=== PATIENT | male | born 1970 | race Caucasian/White ===

== ENCOUNTER 2018-06-10 08:10 | Emergency (ER) | payer BC ==
--- NOTE | 2018-06-10 08:22 | UC ---
Throat Pain/Nasal Margarito HPI - HPI Summary HPI Summary: 47-year-old male here with complaint of 2 weeks of upper respiratory tract infection symptoms. He's got sinus pressure green rhinorrhea mild sore throat. Started get pressure building up in his right ear. No recent fevers. No cough or chest congestion. He has been using [id number] medications which helped with the symptoms but overall condition is worsening. - History of Current Complaint Stated Complaint: COLD SYMPTOMS Time Seen by Provider: 06/10/18 08:14 - Allergies/Home Medications Allergies/Adverse Reactions: Allergies Allergy/AdvReac Type Severity Reaction Status Date / Time No Known Allergies Allergy Verified 03/18/16 11:26 PMH/Surg Hx/FS Hx/Imm Hx Previously Healthy: Yes Other History Of: Negative For: Anticoagulant Therapy - Surgical History Surgical History: None - Family History Known Family History: Negative: Cardiac Disease, Diabetes - Social History Alcohol Use: None Substance Use Type: None Smoking Status (MU): Unknown if Ever Smoked Review of Systems All Other Systems Reviewed And Are Negative: Yes Constitutional: Positive: Negative Skin: Positive: Negative Eyes: Positive: Negative ENT: Positive: Sore Throat, Ear Ache, Nasal Discharge, Sinus Congestion, Sinus Pain/Tenderness Respiratory: Positive: Negative Cardiovascular: Positive: Negative Gastrointestinal: Positive: Negative Motor: Positive: Negative Neurovascular: Positive: Negative Musculoskeletal: Positive: Negative Neurological: Positive: Negative Psychological: Positive: Negative Is Patient Immunocompromised?: No Physical Exam Triage Information Reviewed: Yes Appearance: Well-Appearing, No Pain Distress, Well-Nourished Vital Signs Reviewed: Yes Eye Exam: Normal Eyes: Positive: Conjunctiva Clear ENT: Positive: Pharyngeal erythema, Nasal congestion, TM dull - RIGHT. Negative : TM red Neck exam: Normal Neck: Positive: Supple Respiratory: Positive: Lungs clear, Normal breath sounds, No respiratory distress Cardiovascular: Positive: RRR Musculoskeletal Exam: Normal Musculoskeletal: Positive: Strength Intact, ROM Intact Neurological Exam: Normal Neurological: Positive: Alert, Muscle Tone Normal Psychological Exam: Normal Psychological: Positive: Age Appropriate Behavior Skin Exam: Normal Throat Pain/Nasal Course/Dx - Differential Dx/Diagnosis Provider Diagnoses: SINUSITIS Discharge - Sign-Out/Discharge Documenting (check all that apply): Patient Departure All imaging exams completed and their final reports reviewed: No Studies - Discharge Plan Condition: Stable Disposition: HOME Prescriptions: Amoxicillin/Clavulanate TAB* [Augmentin TAB 875*] 875 mg PO BID #20 tab Patient Education Materials: Sinusitis (ED) Referrals: Candace Dye MD [Primary Care Provider] - Additional Instructions: FOLLOW UP WITH YOUR DOCTOR IF NOT COMPLETELY IMPROVED. GET RECHECKED FOR ANY WORSENING OF YOUR CONDITION OR QUESTIONS OR CONCERNS. - Billing Disposition and Condition Condition: STABLE Disposition: Home
[2018-06-10 08:26] VITALS: BP 135/88
== END 2018-06-10 08:26 | disposition home or self-care (01) ==
LOC: UCEAST 08:10
DX: J32.9 Chronic sinusitis, unspecified (principal)
CPT/HCPCS: 99212; G0463

== ENCOUNTER 2018-10-02 06:59 | Day surgery (SDC) | payer BC ==
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
[~2018-10-02 06:59] MED LIST: Buffered Lidocaine 1% SYRIN* 1 ML/SYRINGE INTRADERM ONE; Famotidine IV* 10 MG/ML 2 ML (20 mg) IV ONE; Lactated Ringers 1000 ML Bag* 1,000 ML IV SCH
[2018-10-02] MEDS ORDERED: Famotidine IV* 10 MG/ML 2 ML (20 mg) ONE (07:27)
[2018-10-02] MEDS ORDERED: cefTRIAXone(*) 2 GM ADDV.VIAL IVPB ONE (07:27)
[2018-10-02] MEDS ORDERED: Dexamethasone IV* 4 MG/ML 1 ML (4 MG) ONE (08:18)
[2018-10-02] MEDS ORDERED: Lidocaine 2% PF * 5 ML VIAL ONE (08:18)
[2018-10-02] MEDS ORDERED: fentaNYL* 50 MCG/ML 2 ML VIAL (100 MCG VIAL) ONE (08:18)
[2018-10-02] MEDS ORDERED: Propofol* 10 MG/ML 20 ML BTL ONE (08:18)
[2018-10-02] MEDS ORDERED: Ondansetron INJ* 2 MG/ML VIAL ONE (08:18)
[2018-10-02] MEDS ORDERED: Midazolam* 1 MG/ML 5 ML VIAL (5 MG) ONE (08:19)
[2018-10-02] MEDS ORDERED: Iohexol 180 (CONTRAST) 10 ML SDV IV ONE (09:02)
[2018-10-02] MEDS ORDERED: oxyCODONE/Acetamin 5/325 MG* TAB PO PRN (09:56)
[2018-10-02] MEDS ORDERED: Ondansetron INJ* 2 MG/ML VIAL IV PRN (09:56)
[2018-10-02] MEDS ORDERED: fentaNYL* 50 MCG/ML 2 ML VIAL (100 MCG VIAL) IV PRN (09:56)
[2018-10-02] MEDS ORDERED: Naloxone* 0.4 MG/ML 1 ML VIAL IV PRN (09:56)
[2018-10-02 10:24] VITALS: BP 122/69
--- NOTE | 2018-10-02 13:46 | OP ---
CC: Dr. Candace Dye * DATE OF OPERATION: 10/02/18 - [facility] DATE OF : 68 SURGEON: Williams Saldivar MD ANESTHESIOLOGIST: Dr. Frazier. ANESTHESIA: General. PRE-OP DIAGNOSES: 1. Left ureteral calculus. 2. Left hydronephrosis. POST-OP DIAGNOSES: 1. Left ureteral calculus. 2. Left hydronephrosis. OPERATIVE PROCEDURE: Cystoscopy, left retrograde pyelogram, left ureteroscopy, fragmentation and removal of left ureteral calculus, and left stent insertion. COMPLICATIONS: None. STENT USED: 7-Malian stent, left ureter. INDICATIONS: Jeannette Anthony is a 48-year-old gentleman who has had episode of left flank pain secondary to a calculus in the left distal ureter. OPERATIVE FINDINGS: Approximately 6 to 7 mm sharp-edged calculus, left ureterovesical junction. POSTOPERATIVE CONDITION: Stable. DESCRIPTION OF PROCEDURE: After induction of general anesthesia, the patient was placed in dorsal lithotomy position. Sequential compression devices were in place and functioning. Initial cystoscopy revealed normal-appearing urethra , but prostate is mildly enlarged. The bladder was examined. There are some chronic inflammatory changes noted in the mid trigone of the bladder, but no evidence of any suspicious bladder lesions noted. A guidewire was introduced into the left ureter. Retrograde pyelogram revealed fullness of the left collecting system consistent with the presence of the calculus. A 6-Malian semirigid ureteroscope was introduced and advanced under direct vision just inside the ureterovesical junction. There was a 6 to 7 mm sharp- edged calculus, which was fairly soft. Using a 3-prong grasper, the stone was engaged and broke into multiple fragments. All of the sizeable fragments were decreased. The ureteroscope was reintroduced to make sure there were no sizeable fragments remaining and none was noted. A 7-Malian stent was introduced and positioned under fluoroscopy with good proximal and distal positioning obtained. The patient tolerated the procedure satisfactorily and was transferred back to the recovery area in stable condition. [id number]/[facility] #: [id number] [facility]
== END 2018-10-02 11:47 | disposition home or self-care (01) ==
LOC: OR 06:59
PROVIDERS: ATTEND Urology
DX: N13.2 Hydronephrosis with renal and ureteral calculous obstruction (principal); Z87.442 Personal history of urinary calculi; K21.9 Gastro-esophageal reflux disease without esophagitis; M54.5 Low back pain
CPT/HCPCS: 74420; 82365; 88300; C1876; J0696; J1100; J2250; J2405; J2704; J3010